=== PATIENT | female | born 1960 | race Caucasian/White ===

== ENCOUNTER 2017-01-12 15:31 | Emergency (ER) | payer OTHER ==
[~2017-01-12] VITALS: Ht 167.6 cm; Wt 80.9 kg
[2017-01-12 15:35] VITALS: BP 136/82; PULSE 80; RESP 16; O2SAT 100
--- NOTE | 2017-01-12 16:52 | ED.REPORT ---
HPI-Headache Date of Service Jan 12, 2017 ED Provider: Nathan Fitch MD Pt is a 56 y/o female presenting to the ED c/o intermittent headaches onset 2 weeks ago, worse today. She does have a remote history of migraines but states that her headache now is sharp and all right-sided which is unusual for her. She c/o associated photophobia, phonophobia. She denies neck pain, fever, chills , vision or speech changes, dysphagia, numbness, weakness, tingling. She has taken Tylenol for the MORENO. Nursing Notes Stated Complaint: SEVERE HEADACHE Chief Complaint: Headache Nursing Notes Reviewed: Yes Allergies: Coded Allergies: cefuroxime (Verified Allergy, Intermediate, edema, 01/12/17) Uncoded Allergies: SULFA (Allergy, Intermediate, rash, 01/12/17) Scheduled PRN Metoclopramide (Reglan) 5 Mg Tablet 5 MG PO QID PRN PRN For Nausea General Time Seen by MD: 16:51 Chief Complaint Headache Hx Obtained From: Patient Arrived By: Walk-in Sudden in Onset?: No Onset Occurred: More than a week ago... (2 weeks) Symptom Duration: Intermittent Location: : Frontal right: Occipital right: Parietal right: Temporal right Quality: Painful Severity: Current: Severe Severity: Maximum: Severe Similar Sx Previous: No Past Medical History Past Medical History BREE w/ CPAP Chronic cough Borderline diabetes Past Surgical History Tonsillectomy Appendectomy Hysterectomy Left breast lumpectomy Smoking History Unknown if Ever Smoker Social History Alcohol Use: "Social" Drug Use: Denies drug use Ambulatory Status Independent Review of Systems Constitutional: Denies: Chills, Fever Eyes: Reports: Photophobia Neurologic: Reports: Headache, Denies: Abnormal movement, Bladder dysfunction, Bowel dysfunction, Change LOC , Confusion, Dizziness, Focal weakness, Lightheaded, Numbness, Problem walking, Seizure, Shaking, Slurred speech, Spinning sensation, Syncope, Unable to speak, Vision change, Weakness Complete sys rev & neg: except as marked. Physical Exam Initial Vital Signs Vital Signs (First) Date Time Temp Pulse Resp B/P Pulse Ox O2 Delivery O2 Flow Rate FiO2 01/12/17 15:35 36.7 80 16 136/82 100 Room Air Initial VS: Reviewed, Vital signs normal ENT: Mucous membranes moist, Conjunctiva normal, No scleral icterus Respiratory: Breath sounds normal, Clear to auscultation, No respiratory distress Cardiovascular: Regular rate & rhythm, Heart sounds normal, Intact distal pulses Abdomen / GI: Soft, No distention Extremities: Vascular intact, Neuro intact, No swelling Skin: Warm, Dry, No cyanosis Psychiatric: Mood/affect normal, Behavior normal, Normal thought content General/Constitutional: Awake, Alert, Well appearing, Cooperative, Not toxic appearing Head / Eyes: Atraumatic, Normocephalic, PERRL, EOMI Neck: Atraumatic, Supple, No meningismus, Full range of motion Neurologic: Oriented X3, Speech NL, No motor deficits, No sensory deficits, CN II - XII intact, Cerebellar NL, Memory NL Interpretation & Diagnostics Lab Results Interpretation Test 01/12/17 16:21 Hold Purple Top Tube Received (Received) Hold Blue Top Tube Received (Received) Hold Red Top Tube Received (Received) Hold Sel[place] Top Tube Received (Received) Re-Eval/Medical Decision Med Decision/Clinical Course 56-year-old female history of migraines presenting with headache 2-3 weeks. She has no neurological deficits. Her pain resolved with Toradol Reglan. No signs of meningitis. Likely migraine headache. No neurological sets. She was discharged plans to take Tylenol and Reglan as needed. Return precautions given. Re-Evaluation/Progress : Time of Eval: 17:41 Re-Evaluation/Progress Note: Pt rechecked. She feels much better after meds. Does not want CT scan. Informed pt of plan for treatment. Pt understands and agrees with plan for treatment. F/U instructions and RTER warnings given. All questions addressed. Counseled Regarding: Diagnosis, Need for follow-up, When/why to return to ED Discharge & Departure Impression: Primary Impression: Headache Headache type: unspecified Headache chronicity pattern: acute headache Intractability: not intractable Qualified Code: R51 - Headache Disposition: Home Discharge Condition All VS Reviewed: Yes Condition: Stable Patient Instructions: Acute Headache (ED) Additional Instructions: Your physical exam and history is reassuring. Take Reglan as directed for nausea. Return to the emergency department if you experience uncontrollable headache, one-sided numbness or weakness, speech or vision changes, trouble swallowing, confusion, fever, worsening neck pain, or for other concerning symptoms. Follow-up with your primary care doctor some time this week. Referrals: Eric Brunner DO (PCP) Gurpreet Attestation Portions of this note were transcribed by Paul Ge. I, Dr. Fitch, personally performed the history, physical exam and medical decision-making; I reviewed and confirmed the accuracy of the information in the transcribed note. Signed by Gurpreet Aleman, 01/12/17 - [id number] copies to: Eric Brunner Ben M MD Jan 12, 2017 16:52 PAUL GE Jan 12, 2017 16:56
[2017-01-12] MEDS ORDERED: MetoCLOpramide 5 mg/mL 2 mL Inj IM ONE (17:00)
[2017-01-12] MEDS ORDERED: METO5TAB78 PO (17:46)
[2017-01-12 18:03] VITALS: BP 120/68; PULSE 70; O2SAT 95
[2017-01-12 18:22] VITALS: BP 120/68; PULSE 70; RESP 16; O2SAT 95
== END 2017-01-12 18:24 | disposition home or self-care (01) ==
LOC: SED 15:31
DX: R51 Headache (principal); R73.03 Prediabetes; G47.33 Obstructive sleep apnea (adult) (pediatric); Z86.69 Personal history of other diseases of the nervous system and sense organs; Z88.1 Allergy status to other antibiotic agents
CPT/HCPCS: 96360; 96372; 99284; J1885; J2765